=== PATIENT | male | born 1995 | race Caucasian/White ===

== ENCOUNTER 2017-03-23 15:06 | Emergency (ER) | payer BC ==
[~2017-03-23] VITALS: Ht 182.9 cm; Wt 69.6 kg
[2017-03-23 15:11] VITALS: BP 137/90
== END 2017-03-23 17:34 | disposition left against medical advice (07) ==
LOC: ED 15:06
DX: Z53.21 Procedure and treatment not carried out due to patient leaving prior to being seen by health care provider (principal)